=== PATIENT | female | born 1975 | race African-American/Black ===

== ENCOUNTER 2024-10-28 10:27 | Emergency (ER) | payer BC, OTHER ==
[2024-10-28 10:35] VITALS: BP 143/78; PULSE 93; RESP 18; BMI 26.7
[2024-10-28 11:48] VITALS: TEMP 98.3
== END 2024-10-28 12:12 | disposition home or self-care (01) ==
LOC: JERFT 10:27 → JER 10:27 → JERFT 12:12
DX: F41.9 Anxiety disorder, unspecified (principal); T36.95XA Adverse effect of unspecified systemic antibiotic, initial encounter
CPT/HCPCS: 99283-25